=== PATIENT | female | born 1930 | race Caucasian/White ===

== ENCOUNTER 2016-12-28 13:48 | Emergency (ER) | payer MEDICARE, BC ==
[2016-12-28] MEDS ORDERED: Aspirin Low Dose CHEW TAB* 81 MG PO ONE (13:56)
[2016-12-28 14:28] LABS: Hematocrit 43 % (35-47); Hemoglobin 14.2 g/dl (12.0-16.0); Mean Corpuscular HGB Conc 33 g/dl (31-36); Mean Corpuscular Hemoglobin 27 pg (27-31); Mean Corpuscular Volume 81 fL (80-97); Mean Platelet Volume 8 um3 (7.4-10.4); Red Cell Distribution Width 16 % (10.5-15); White Blood Count 6.1 10^3/ul (3.5-10.8)
--- NOTE | 2016-12-28 14:35 | RAD ---
Indication: Aortic dissection. Single frontal view of the chest performed at 1410 hours was reviewed. Comparison is made with previous exam dated January 17, 2012. Cardiomegaly is noted. Pacemaker leads are in place. No alveolar consolidation is noted. IMPRESSION: NO ACTIVE CARDIOPULMONARY DISEASE IS NOTED.
[2016-12-28 14:42] LABS: Albumin 4.3 g/dL (3.2-5.2); BUN/Creatinine Ratio 25.6 (8-20); Calcium 9.6 mg/dL (8.6-10.3); EGFR African American 50.6 (>60); EGFR Non-African American 39.4 (>60); Globulin 2.9 g/dL (2-4); Potassium 4.3 mmol/L (3.5-5.0); Total Bilirubin 0.5 mg/dL (0.2-1.0); Total Protein 7.2 g/dL (6.4-8.9)
[2016-12-28 14:44] LABS: Troponin I 0.01 ng/mL (<0.04)
--- NOTE | 2016-12-28 16:35 | ED ---
Pipo Pitt Aidan, scribed for Donny Jain MD on 12/28/16 at 1413 . HPI Cardiac - HPI Summary HPI Summary: 86 y/o female presents to the ED via recommendation from her doctor with a subacute/chronicmthoracic aortic dissection. Imaging has revealed that her heart is enlarged. She denies any dizziness/lightheadedness or CP. On arrival, she had some SOB. Pt is on warfarin. Hx of mitral valve repair by Dr. Silvestre at [facility] in 2011. - History of Current Complaint Chief Complaint: EDChestPainROMI Stated Complaint: CHEST PAIN Time Seen by Provider: 12/28/16 13:52 Hx Obtained From: Patient Onset/Duration: Started Hours Ago Timing: Constant Initial Severity: Moderate Current Severity: Mild Pain Intensity: 0 Pain Scale Used: 0-10 Numeric Chest Pain Radiates: No Chest Pain Radiates To:: Other - There is no CP Character: Other: - no CP, see HPI Aggravating Factor(s): Other: - unknown Alleviating Factor(s): Other: - unknown Associated Signs and Symptoms: Positive: Other: - enlarged heart, small tear in heart - Allergy/Home Medications Allergies/Adverse Reactions: Allergies Allergy/AdvReac Type Severity Reaction Status Date / Time Sulfa Antibiotics Allergy See Comment Verified 12/28/16 12:17 PMH/Surg Hx/FS Hx/Imm Hx Endocrine/Hematology History: Denies: Hx Diabetes Cardiovascular History: Denies: Hx Hypertension History: Denies: Hx Renal Disease Musculoskeletal History: Denies: Hx Rheumatoid Arthritis, Hx Osteoporosis - Surgical History Surgery Procedure, Year, and Place: hysterectomy. left aortic valve repair. pacemaker/defibrilator. [address] Esteves Infectious Disease History: No Infectious Disease History: Denies: Traveled Outside the [place] in Last 30 Days - Family History Known Family History: Positive: Hypertension - Social History Occupation: Retired Lives: Alone Alcohol Use: None Hx Substance Use: No Substance Use Type: Reports: None Hx Tobacco Use: No Smoking Status (MU): Never Smoked Tobacco Do You Chew or Dip Tobacco: No Have You Chewed or Dipped Tobacco in the LAST YEAR: No Have You Smoked in the Last Year: No Review of Systems Constitutional: Negative Eyes: Negative ENT: Negative Positive: Other - enlarged heart, small tear in heart. Negative: Palpitations, Chest Pain Respiratory: Negative Gastrointestinal: Negative Genitourinary: Negative Musculoskeletal: Negative Neurological: Negative Psychological: Normal All Other Systems Reviewed And Are Negative: Yes Physical Exam - Summary Physical Exam Summary: Constitutional: Well-developed, Well-nourished, Alert. (-) Distressed Skin: Warm, Dry HENT: Normocephalic; Atraumatic Eyes: Conjunctiva normal Neck: Musculoskeletal ROM normal neck. (-) JVD, (-) Stridor, (-) Tracheal deviation Cardio: Rhythm regular, rate normal, Heart sounds normal; Intact distal pulses 2 + and symmetric, (-) Murmur, Pulmonary/Chest wall: Effort normal. (-) Respiratory distress, (-) Wheezes, (-) Rales Abd: Soft, (-) Tenderness, (-) Distension, (-) Guarding, (-) Rebound Musculoskeletal: (-) Edema Lymph: (-) Cervical adenopathy Neuro: Alert, Oriented x3 Psych: Mood and affect Normal Triage Information Reviewed: Yes Vital Signs On Initial Exam: Initial Vitals Temp Pulse Resp BP Pulse Ox 96.5 F 75 20 145/65 98 12/28/16 13:51 12/28/16 13:51 12/28/16 13:51 12/28/16 13:51 12/28/16 13:51 Vital Signs Reviewed: Yes Diagnostics - Vital Signs Vital Signs Temp Pulse Resp BP Pulse Ox 12/28/16 13:54 96.5 F 74 20 145/65 98 12/28/16 13:51 96.5 F 75 20 145/65 98 - Laboratory Lab Results: Lab Results 12/28/16 12/28/16 12/28/16 Range/Units 14:19 14:19 14:19 WBC 6.1 (3.5-10.8) 10^3/ul RBC 5.30 (4.0-5.4) 10^6/ul Hgb 14.2 (12.0-16.0) g/dl Hct 43 (35-47) % MCV 81 (80-97) fL MCH 27 (27-31) pg MCHC 33 (31-36) g/dl RDW 16 H (10.5-15) % Plt Count 168 (150-450) 10^3/ul MPV 8 (7.4-10.4) um3 Neut % (Auto) 68.0 (38-83) % Lymph % (Auto) 21.9 L (25-47) % [place] % (Auto) 7.7 (1-9) % Eos % (Auto) 1.4 (0-6) % Baso % (Auto) 1.0 (0-2) % Absolute Neuts (auto) 4.1 (1.5-7.7) 10^3/ul Absolute Lymphs (auto) 1.3 (1.0-4.8) 10^3/ul Absolute Monos (auto) 0.5 (0-0.8) 10^3/ul Absolute Eos (auto) 0.1 (0-0.6) 10^3/ul Absolute Basos (auto) 0.1 (0-0.2) 10^3/ul Absolute Nucleated RBC 0 10^3/ul Nucleated RBC % 0 INR (Anticoag Therapy) (0.89-1.11) APTT (26.0-36.3) seconds Sodium 135 (133-145) mmol/L Potassium 4.3 (3.5-5.0) mmol/L Chloride 101 (101-111) mmol/L Carbon Dioxide 25 (22-32) mmol/L Anion Gap 9 (2-11) mmol/L BUN 33 H (6-24) mg/dL Creatinine 1.29 H (0.51-0.95) mg/dL Est GFR ( Amer) 50.6 (>60) Est GFR (Non-Af Amer) 39.4 (>60) BUN/Creatinine Ratio 25.6 H (8-20) Glucose 177 H (70-100) mg/dL Lactic Acid 1.9 (0.5-2.0) mmol/L Calcium 9.6 (8.6-10.3) mg/dL Total Bilirubin 0.50 (0.2-1.0) mg/dL AST 20 (13-39) U/L ALT 14 (7-52) U/L Alkaline Phosphatase 64 (34-104) U/L Troponin I 0.01 (<0.04) ng/mL Total Protein 7.2 (6.4-8.9) g/dL Albumin 4.3 (3.2-5.2) g/dL Globulin 2.9 (2-4) g/dL Albumin/Globulin Ratio 1.5 (1-3) /03/08 Range/Units 14:19 WBC (3.5-10.8) 10^3/ul RBC (4.0-5.4) 10^6/ul Hgb (12.0-16.0) g/dl Hct (35-47) % MCV (80-97) fL MCH (27-31) pg MCHC (31-36) g/dl RDW (10.5-15) % Plt Count (150-450) 10^3/ul MPV (7.4-10.4) um3 Neut % (Auto) (38-83) % Lymph % (Auto) (25-47) % [place] % (Auto) (1-9) % Eos % (Auto) (0-6) % Baso % (Auto) (0-2) % Absolute Neuts (auto) (1.5-7.7) 10^3/ul Absolute Lymphs (auto) (1.0-4.8) 10^3/ul Absolute Monos (auto) (0-0.8) 10^3/ul Absolute Eos (auto) (0-0.6) 10^3/ul Absolute Basos (auto) (0-0.2) 10^3/ul Absolute Nucleated RBC 10^3/ul Nucleated RBC % INR (Anticoag Therapy) 1.98 H (0.89-1.11) APTT 42.8 H (26.0-36.3) seconds Sodium (133-145) mmol/L Potassium (3.5-5.0) mmol/L Chloride (101-111) mmol/L Carbon Dioxide (22-32) mmol/L Anion Gap (2-11) mmol/L BUN (6-24) mg/dL Creatinine (0.51-0.95) mg/dL Est GFR ( Amer) (>60) Est GFR (Non-Af Amer) (>60) BUN/Creatinine Ratio (8-20) Glucose (70-100) mg/dL Lactic Acid (0.5-2.0) mmol/L Calcium (8.6-10.3) mg/dL Total Bilirubin (0.2-1.0) mg/dL AST (13-39) U/L ALT (7-52) U/L Alkaline Phosphatase (34-104) U/L Troponin I (<0.04) ng/mL Total Protein (6.4-8.9) g/dL Albumin (3.2-5.2) g/dL Globulin (2-4) g/dL Albumin/Globulin Ratio (1-3) Result Diagrams: 12/28/16 14:19 12/28/16 14:19 Lab Statement: Any lab studies that have been ordered have been reviewed, and results considered in the medical decision making process. - Radiology CHEST X-RAY Xray Interpretation: No Acute Changes - IMPRESSION: No active cardiopulmonary disease is noted Radiology Interpretation Completed By: Radiologist - EKG EKG 1409 Cardiac Rate: NL - 72 BPM EKG Interpretation: PACED RHYTHM, NO STEMI Re-Evaluation - Re-Evaluation First Eval Re-Evaluation Time: 15:30 Change: Unchanged Second Eval Re-Evaluation Time: 16:00 Change: Unchanged Disposition - Course Course Of Treatment: 86 y/o female presents with an enlarged heart. [facility] was consulted for transfer, however, there was no bed capacity so transfer was denied. The patient then requested transfer to [facility]. Dr Silvestre at [facility] initially thought the patient had her mitral valve repair done at [facility], however, it was found that she actually had the procedure done at [facility]. Dr. De La Garza was not comfortable with admitting the patient to due to the patient being anticoagulated in the presence of aortic dissection. Dr. De La Garza wishes to admit the patient somewhere where there is vascular and cardiothoracic backup. So as to not board the patient until 7AM tomorrow when Dr. Silvestre can accept her, she will be transfered to [facility] in the ED. Accepted by Dr. Machuca. No treatment is currently advised for INR or blood pressure. - Diagnoses Provider Diagnoses: chronic aortic dissection - Physician Notifications Time Discussed With Above Provider: 14:11 - Dr. Jain discussed the patient's care with [facility] to determine if they will take the patient for transfer. [facility] currently has no bed capacity. They are declining transfer. The patient then requested transfer to [facility]. Dr Silvestre at [facility] felt very strongly about the patient being transfered to [facility], as he thought that she had her aortic valve repair done there. It was later found that she actually had the valve repair done at [facility]. The patient will be transfered to [facility] and signed out to Dr. Machuca. - Critical Care Time Critical Care Time: 75-104 min - 90 minutes Discharge - Discharge Plan Condition: Stable Disposition: TRANS HIGHER LVL OF CARE FAC Discharge Disposition Comment: The patient will be transfered to [facility] and signed out to Dr. Machuca Referrals: Preeti Cooper MD [Primary Care Provider] - The documentation as recorded by the Pipo figueredo Aidan accurately reflects the service I personally performed and the decisions made by , Donny Jain MD.
[2016-12-28 17:35] VITALS: BP 113/45
== END 2016-12-28 18:00 | disposition short-term general hospital (02) ==
LOC: ED 13:48
DX: I71.00 Dissection of unspecified site of aorta (principal); I51.7 Cardiomegaly; R06.02 Shortness of breath; Z79.01 Long term (current) use of anticoagulants
CPT/HCPCS: 36415; 71010; 80053; 83605; 84484; 85025; 85610; 85730; 93005; 99283

== ENCOUNTER 2019-03-04 07:20 | Emergency (ER) | payer MEDICARE, BC ==
[2019-03-04 08:26] LABS: ABS Basophils 0.1 10^3/ul (0-0.2); ABS Eosinophils 0.1 10^3/ul (0-0.6); ABS Lymphocytes 0.7 10^3/ul (1.0-4.8); ABS Monocytes 0.7 10^3/ul (0-0.8); ABS Neutrophils 3.9 10^3/ul (1.5-7.7); Eosinophil % 1.7 %; Hematocrit 42 % (35-47); Hemoglobin 13.7 g/dL (12.0-16.0); Lymphocyte % 12.8 %; Mean Corpuscular HGB Conc 33 g/dL (31-36); Mean Corpuscular Hemoglobin 27 pg (27-31); Mean Corpuscular Volume 82 fL (80-97); Mean Platelet Volume 8.2 fL (7.4-10.4); Platelet Count 117 10^3/uL (150-450); Red Blood Count 5.09 10^6 /uL (3.70-4.87); Red Cell Distribution Width 18 % (10-15); White Blood Count 5.5 10^3/uL (3.5-10.8)
--- NOTE | 2019-03-04 08:40 | ED ---
Shortness of Breath - HPI Summary HPI Summary: The patient is an 88 y/o F presenting [place] [facility] accompanied by daughter with a chief complaint of sudden onset SOB this morning at 0400. She reports that she doesnt sleep well, and she woke up around 0400 with some difficulty breathing. She got up and starting walking around but felt weak so she lied back down. She called her daughter, who suggested coming to the ED today. Pt has markedly improved and is nearly at baseline. She denies cough, nausea, vomiting, abd pain, dysuria, increased urinary frequency, or edema. She states she occasionally gets swelling in the eyes, but there is none present now. Pt denies weight gain - swelling when gets "fluid backup." She is not currently in pain, but she still feels mildly SOB. Notes that she has hx of CHF, aortic dissection and mitral valve repair, but she had an appointment with her stretcher drier operator a month ago and results were negative for change per CT. Last echocardiogram in 2018. She hasnt taken medications yet this morning. Patient s medications reviewed this visit. - History of Current Complaint Chief Complaint: EDShortnessOfBreath Time Seen by Provider: 03/04/19 07:40 Hx Obtained From: Patient, Family/Social Work Msw - daughter Onset/Duration: Sudden Onset - at 0400 this morning, Lasting Hours, Still Present Current Severity: Moderate Dyspnea At: Rest Aggravating Factors: Other - ambulation Alleviating Factors: Nothing Associated Signs & Symptoms: Dizzy - Allergy/Home Medications Allergies/Adverse Reactions: Allergies Allergy/AdvReac Type Severity Reaction Status Date / Time Sulfa (Sulfonamide Allergy See Comment Verified 03/04/19 08:22 Antibiotics) Home Medications: Home Medications Carvedilol [Coreg] 25 mg PO BID 03/04/19 [History Confirmed 03/04/19] Cholecalciferol (Vitamin D3) [Vitamin D3] 1,000 unit PO DAILY 03/04/19 [History Confirmed 03/04/19] Ferrous Sulfate 325 mg PO DAILY 03/04/19 [History Confirmed 03/04/19] Losartan Potassium [Cozaar] 50 mg PO BID 03/04/19 [History Confirmed 03/04/19] Multivitamin/Iron/Folic Acid [Centrum Adults Tablet] 1 tab PO DAILY 03/04/19 [ History Confirmed 03/04/19] Tramadol HCl 50 mg PO Q6HR PRN 03/04/19 [History Confirmed 03/04/19] PMH/Surg Hx/FS Hx/Imm Hx Previously Healthy: No Endocrine/Hematology History: Denies: Hx Diabetes, Hx Systemic Lupus Erythematosus Cardiovascular History: Reports: Hx Aneurysm - aortic , Hx Atrial Fibrillation, Hx Congestive Heart Failure, Hx Hypertension, Hx Pacemaker/ICD, Other Cardiovascular Problems/Disorders - mitral valve repair Denies: Hx Auto Implanted Cardiovert Defib History: Denies: Hx Renal Disease Musculoskeletal History: Denies: Hx Rheumatoid Arthritis, Hx Osteoporosis - Surgical History Surgery Procedure, Year, and Place: hysterectomy. left aortic valve repair. pacemaker/defibrilator. [address] Esteves Infectious Disease History: No Infectious Disease History: Denies: Traveled Outside the [place] in Last 30 Days - Family History Known Family History: Positive: Hypertension - Social History Occupation: Retired Lives: Alone Alcohol Use: None Hx Substance Use: No Substance Use Type: Reports: None Hx Tobacco Use: No Smoking Status (MU): Never Smoked Tobacco Do You Chew or Dip Tobacco: No Have You Chewed or Dipped Tobacco in the LAST YEAR: No Have You Smoked in the Last Year: No Review of Systems Constitutional: Negative Eyes: Negative ENT: Negative Cardiovascular: Negative Positive: Shortness Of Breath. Negative: Cough Negative: Abdominal Pain, Vomiting, Nausea Negative: dysuria, frequency Negative: Edema Neurological: Other - dizziness Positive: Weakness All Other Systems Reviewed And Are Negative: Yes Physical Exam - Summary Physical Exam Summary: Vital Signs Reviewed: Yes A+Ox3, no distress, speaking full easy sentences, VSS, daughter at bedside Eyes: Conjunctiva Clear, MANUEL. EOM intact and full ENT: Hearing grossly normal TM x 2 clear, mmoist, uvula midline, no exudate, no erythema Neck: Positive: Supple Respiratory: Positive: No respiratory distress, No accessory muscle use + CTA throughout no w/r Cardiovascular: RRR nl s1, s2 no m/r CBT <2 sec, no JVP, no edema abd soft + BS nt/nd no guarding, no distension Musculoskeletal Exam: GONZALEZ x 4 without difficulty Strength Intact, ROM Intact Neurological: Positive: Alert, + sensation throughout Psychological: Positive: Normal Response To crisis manager Skin: Positive: no rash, no ecchymosis Triage Information Reviewed: Yes Vital Signs On Initial Exam: Initial Vitals Temp Pulse Resp BP Pulse Ox 97.0 F 61 18 182/79 94 03/04/19 07:21 03/04/19 07:21 03/04/19 07:21 03/04/19 07:21 03/04/19 07:21 Vital Signs Reviewed: Yes Diagnostics - Vital Signs Vital Signs Temp Pulse Resp BP Pulse Ox 03/04/19 07:21 97.0 F 61 18 182/79 94 - Laboratory Lab Results: Lab Results 03/04/19 Range/Units 08:00 WBC 5.5 (3.5-10.8) 10^3/uL RBC 5.09 H (3.70-4.87) 10^6 /uL Hgb 13.7 (12.0-16.0) g/dL Hct 42 (35-47) % MCV 82 (80-97) fL MCH 27 (27-31) pg MCHC 33 (31-36) g/dL RDW 18 H (10-15) % Plt Count 117 L (150-450) 10^3/uL MPV 8.2 (7.4-10.4) fL Neut % (Auto) 71.3 % Lymph % (Auto) 12.8 % [place] % (Auto) 12.8 % Eos % (Auto) 1.7 % Baso % (Auto) 1.4 % Absolute Neuts (auto) 3.9 (1.5-7.7) 10^3/ul Absolute Lymphs (auto) 0.7 L (1.0-4.8) 10^3/ul Absolute Monos (auto) 0.7 (0-0.8) 10^3/ul Absolute Eos (auto) 0.1 (0-0.6) 10^3/ul Absolute Basos (auto) 0.1 (0-0.2) 10^3/ul Absolute Nucleated RBC 0.0 10^3/ul Nucleated RBC % 0.0 Result Diagrams: 03/04/19 08:00 03/04/19 08:00 Lab Statement: Any lab studies that have been ordered have been reviewed, and results considered in the medical decision making process. - Radiology CXR Radiology Interpretation Completed By: Radiologist Summary of Radiographic Findings: Impression: No active cardiopulmonary disease. ED physician has reviewed this radiology report. - CT Chest/Abd/Pel CTA CT Interpretation Completed By: Radiologist Summary of CT Findings: Impression: 1. Passive congestion of the liver with reflux of contrast from the RIGHT atrium to the IVC and hepatic veins. Nodular surface contour of the liver suggesting cirrhosis. Negative for conspicuous focal liver lesions. 2. Mild diverticulosis of the colon without findings of acute diverticulitis. 3. Small to moderate volume of nonloculated ascites. 4. Probable renal vascular atrophy of the LEFT kidney with suggestion of interval worsening of the ostial stenosis estimated at 90% or greater. 5. Negative for abdominal aortoiliac aneurysm or dissection. ED physician has reviewed this radiology report. - EKG 0750 Cardiac Rate: Other Rate - 60 bpm Summary of EKG Findings: AV paced at 60 bpm. No STEMI. Re-Evaluation - Re-Evaluation First Eval Re-Evaluation Time: 12:00 Change: Improved Comment: She is feeling much better, and she is hungry now. awaiting CT report Second Eval Re-Evaluation Time: 12:35 Comment: We discussed results of the CTA. We will consult her stretcher drier operator at [facility] from December 2017 - pt had [facility] at [facility] more recent Third Eval Re-Evaluation Time: 12:45 Comment: Patient and daughter are aware of consulation with cardiology for CT comparison. awaiting for call back from CT surgery Fourth Eval Re-Evaluation Time: 14:00 Change: Unchanged Comment: I discussed updates with Dr. Kramer's consultation. - will look at images and call me back - expect pt will likely be able to go home with follow- up Fifth Eval Re-Evaluation Time: 14:30 Comment: Call from Tonia - TELECOM ANALYST with CT surgery - okay to discharge pt Recommend f/ u with Dr. Waldron next week. Pt and daughter in agreement - will discharge. pt ate, feels well. spoke with Katie [phone] - RN Dr. Waldron office - aware pt sariah ace calling for appt. Pt signed medical release to have records released to office Course/Dx - Course Course Of Treatment: Pt presents to ED stating this am felt sob and weak - states has markedly improved. complex med history including aortic valve replacment, dissection - stable. Vital signs are stable. Patient was well- appearing on exam with stable vital signs with a stitch she feels well although not 100% at baseline. No focal findings on exam. Lungs are clear. Labs reviewed. Patient with borderline renal disease that is baseline. Troponin is negative BNP is slightly higher than her baseline. Patient given her morning medications that she did not take them at home. This included Coreg, aspirin, Lasix, and Cozaar. We'll check CTA to eval the dissection. We'll give patient some gentle IV fluid given her renal function well as some IV Lasix. elevated BP - history of same - Diagnoses Provider Diagnoses: SOB (shortness of breath) - Physician Notifications Discussed Care of Patient With: Jaime Mueller - radiology Time Discussed With Above Provider: 12:28 Instructed by Provider To: Other - Dr. Mueller reports the results of the patient's CTA. At 1240 I spoke with the patient's stretcher drier operator's office, Dr. Waldron at [facility]. He is out of the [place], but we reviewed the most recent CT in June 2018; it is unclear if there are new findings. I will speak with the transfer center to see if we can obtain a better read for comparison. At 1309, I spoke with Dr. Kramer, [facility], concerning the patient's CT reads, and he will review them. At 1420, CT comparison is reported to be consistent between reads per MARY Randall. Patient is clear for discharge as the finding is stable from June 2018. Discharge - Sign-Out/Discharge Documenting (check all that apply): Patient Departure - Patient will be discharged home. Patient Received Moderate/Deep Sedation with Procedure: No - Discharge Plan Condition: Stable Disposition: HOME Patient Education Materials: Shortness of Breath (ED) Referrals: Preeti Cooper MD [Primary Care Provider] - Marky Kramer MD [Medical Doctor] - 1 Week Additional Instructions: Please follow up with Dr. Waldron office to schedule an appointment next week [phone] Take your medications as prescribed Schedule a follow-up appointment with your primary care provider Avoid high salt diet foods Return to the emergency department for any new or worsening symptoms. - Billing Disposition and Condition Condition: STABLE Disposition: Home - Attestation Statements Document Initiated by Scribe: Yes Documenting Scribe: Lashawn Garrett Provider For Whom Scribe is Documenting (Include Credential): Dr. Citlalli Pepe MD Scribe Attestation: Lashawn Pitt scribed for Dr. Citlalli Pepe MD on 03/04/19 at 1609. Scribe Documentation Reviewed: Yes Provider Attestation: The documentation as recorded by the scribe, Lashawn Garrett accurately reflects the service I personally performed and the decisions made by me, Dr. Citlalli Pepe MD Status of Scribe Document: Viewed
[2019-03-04 08:41] LABS: Albumin 4.3 g/dL (3.2-5.2); Albumin/Globulin Ratio 1.7 (1-3); BUN/Creatinine Ratio 24.4 (8-20); Calcium 9.6 mg/dL (8.6-10.3); EGFR African American 48.3 (>60); EGFR Non-African American 39.9 (>60); Globulin 2.6 g/dL (2-4); Magnesium 2.3 mg/dL (1.9-2.7); Potassium 4.4 mmol/L (3.5-5.0); Total Bilirubin 1.1 mg/dL (0.2-1.0); Total Protein 6.9 g/dL (6.4-8.9); Troponin I 0.03 ng/mL (<0.04)
[2019-03-04] MEDS ORDERED: Furosemide TAB* 40 MG PO ONE (08:53)
[2019-03-04] MEDS ORDERED: Aspirin 81 mg CHEW TAB* 81 MG TAB.CHEW PO ONE (08:53)
[2019-03-04] MEDS ORDERED: Losartan TAB* 25 MG PO ONE (09:42)
[2019-03-04] MEDS ORDERED: Carvedilol TAB* 25 MG PO ONE (09:43)
[2019-03-04] MEDS ORDERED: Furosemide IV* 10 MG/ML 2 ML VIAL (20 MG) IV ONE (09:43)
[2019-03-04] MEDS ORDERED: NS 0.9% 500 ML* 500 ML IV SCH (10:00)
[2019-03-04 11:06] LABS: Urine Appearance Clear; Urine Bacteria Absent (Absent); Urine Bilirubin Negative (Negative); Urine Blood Negative (Negative); Urine Color Yellow; Urine Glucose Negative (Negative); Urine Ketones Negative (Negative); Urine Nitrite Negative (Negative); Urine Protein 2+(100 mg/dL) (Negative); Urine Red Blood Cell 1+(3-5/hpf) (Absent); Urine Specific Gravity 1.012 (1.010-1.030); Urine Squamous Epithelial Cell Present (Absent); Urine Urobilinogen Negative (Negative); Urine White Blood Cell Trace(0-5/hpf) (Absent)
[2019-03-04] MEDS ORDERED: Iodixanol* (CONTRAST) 320 MG/ML 100 ML SDV IV ONE (11:15)
[2019-03-04 15:09] VITALS: BP 138/89
== END 2019-03-04 15:08 | disposition home or self-care (01) ==
LOC: ED 07:20
DX: R06.02 Shortness of breath (principal); I48.91 Unspecified atrial fibrillation; I50.9 Heart failure, unspecified; I11.0 Hypertensive heart disease with heart failure; Z95.0 Presence of cardiac pacemaker; Z88.2 Allergy status to sulfonamides; Z79.899 Other long term (current) drug therapy
CPT/HCPCS: 36415; 71045; 71275; 74174; 80053; 81003; 81015; 83735; 83880; 84484; 85025; 87086; 93005; 96361; 96374; 99285; A9270-GY; J1940; Q9967

== ENCOUNTER 2019-06-05 09:47 | Emergency (ER) | payer MEDICARE, BC ==
--- OUTSIDE RECORDS SUMMARY | 2019-06-05 09:58 | XMS REPORT | Continuity of Care Document ---
:1930 External Reference #:[id number] Author Name Preeti Cooper M.D. (transmitted by agent of provider [place]) Address [address], [place] [address] Care Team Providers Name Role Phone Heriberto Olsen MD - Gastroenterology Care Team Information Enterprise Integration Developer Preeti Cooper MD - Internal Care Team Information Enterprise Integration Developer [phone] Medicine Problems Active Problems Provider Date Chronic dissection of thoracic Preeti Cooper M.D. Onset: 07/01/2017 aorta Replacement of mitral valve Preeti Cooper M.D. Onset: 05/10/2015 Restless legs Leon Nazario M.D.,[facility] Onset: 11/14/2007 Osteoporosis Preeti Cooper M.D. Onset: 05/10/2015 Impaired fasting glycaemia Leon Nazario M.D.,[facility] Onset: 06/09/2011 Benign essential hypertension Leon Nazario M.D.,[facility] Onset: 11/14/2007 Thoracic aortic ectasia Jabier Cuadra M.D., [facility], Onset: 01/03/2017 FASKS Paroxysmal atrial fibrillation Jabier Cuadra M.D., [facility], Onset: 2016 FASKS Mitral leaflet abnormality Jabier Cuadra M.D., [facility], Onset: 11/12/2018 [facility] Social History Type Date Description Comments Sex Unknown Tobacco Use Start: Unknown End: Former Cigarette Smoker 1 year in 20s. Unknown ETOH Use Occasionally consumes 3-4 nights a week wine one glass Recreational Drug Use Denies Drug Use Tobacco Use Start: Unknown Patient has never smoked Smoking Status Reviewed: 05/19/19 Patient has never smoked Exercise Type/Frequency Walks daily Allergies, Adverse Reactions, Alerts Active Allergies Reaction Severity Comments Date Sulfonamides headache 11/13/2007 Norvasc leg pain 11/13/2007 Lisinopril cough 11/13/2007 Torsemide N/V/D 09/26/2011 Gabapentin 01/02/2012 Medications Active Medications SIG Qnty Indications Ordering Provider Date Centrum 1 by mouth every 90tabs Preeti [place], 03/07/2018 Tablets day M.D. Ferrous Sulfate 1 by mouth every 90tabs Preeti Cotton, 03/07/2018 orher day M.D. 325(65Fe) mg Tablets Tramadol HCL take 1 tablet @ 120tabs Preeti Cotton, 11/12/2013 50mg hs M.D. Tablets Vitamin D3 High 1 po qd [facility], 09/01/2013 Potency M.D. 1000Unit Capsules Aspirin 81 Low Dose 1 by mouth every Unknown day 81mg Chewtabs Furosemide take 2 tablets 90tabs Preeti Cotton, 40mg by mouth once M.D. Tablets daily in the morning Losartan Potassium 1 by mouth twice 180tabs Preeti Cotton, a day (dr. Márquez 50mg Tablets rick) Carvedilol 1 tab by mouth 180tabs Preeti Cotton, 25mg two times daily M.D. Tablets Medications Administered in Office Medication SIG Qnty Indications Ordering Provider Date Dexamethasone Sodium Henry Summers MD 10/17/2016 Phosphate, 1 MG Injection Inj, Regadenoson, 0.1 MG Ameya Lim M.D. 01/09/2014 Injection Inj, Regadenoson, 0.1 MG DORINDA Augustine 01/09/2014 Injection Technetium TC 99M Ameya Lim M.D. 01/09/2014 Tetrofosmin, Per Unit Dose Up To 40 Millicuries Injection Technetium TC 99M DORINDA Augustine 01/09/2014 Tetrofosmin, Per Unit Dose Up To 40 Millicuries Injection Inj, Regadenoson, 0.1 MG Jabier Cuadra M.D., 02/03/2013 Injection FACC, FASKS Technetium TC 99M Jabier Cuadra M.D., 02/03/2013 Tetrofosmin, Per Unit Dose Up [facility] To 40 Millicuries Injection Immunizations CPT Code Status Date Vaccine Reaction Lot # [id number] Given 05/19/2019 Influenza Virus Vaccine, [id number] Quadrivalent ([id number]), Derived From Cell 60692 Given 05/08/2018 Influenza Virus Vaccine, [id number] Quadrivalent, Split, Preservative Free 98923 Given 05/26/2017 Influenza Virus Vaccine, Quadrivalent, Split, Preservative Free 80604 Given 06/20/2016 Influ Virus Vaccine, no immediate reaction [id number] Quadrivalent, Split Virus, noted ... [place] [address] Given 05/10/2015 Influenza Virus Vaccine, [id number] Quadrivalent, Split, Preservative Free 04653 Given 09/28/2014 Pneumococcal Conjugate [id number] Vaccine 13 Valent For Intramuscular Use 80478 Given 05/06/2014 Influenza Virus Vaccine, [id number] Quadrivalent, Split, Preservative Free 57396 Given 05/01/2013 Flu Vaccine Split Virus [id number] Preservative Free For Indiv 3Yr Older [id number] Given 04/17/2012 Fluzone Vaccine [id number] 80774 Given 09/26/2011 Pneumonia Vaccine [id number] 53776 Given 09/14/2011 Pneumonia Vaccine [id number] Given 05/01/2011 Fluzone Vaccine 38440 Given 05/01/2010 Influenza Virus 3Yrs & Over 88255 Given 04/23/2008 Influenza Virus 3Yrs & [id number] Over 34035 Given 06/06/2007 Flu Vac (History By [id number] Patient> Vital Signs Date Vital Result Comment 05/19/2019 10:01am Height 62 inches 5'2" Weight 167.00 lb Heart Rate 80 /min BP Systolic 129 mmHg BP Diastolic 72 mmHg Body Temperature 97.1 F O2 % BldC Oximetry 96 % BMI (Body Mass Index) 30.5 kg/m2 04/18/2019 10:16am Height 62 inches 5'2" Weight 158.00 lb Heart Rate 74 /min BP Systolic 144 mmHg BP Diastolic 68 mmHg O2 % BldC Oximetry 96 % BMI (Body Mass Index) 28.9 kg/m2 Results Test Date Facility Test Result H/L Range Note BMP W/Egfr 2019 [facility] Sodium 141 mmol/L Normal 135- [address] [place] [address] [phone] Potassium 4.8 mmol/L Normal 3.5-5.0 Chloride 100 mmol/L Low 101-111 Co2 Carbon Dioxide 31 mmol/L Normal 22-32 Anion Gap 10 mmol/L Normal 2-11 Glucose 116 mg/dL High 70-100 Blood Urea Nitrogen 36 mg/dL High 6-24 Creatinine 1.23 mg/dL High 0.51-0.95 BUN/Creatinine Ratio 29.3 High 8-20 Calcium 9.6 mg/dL Normal 8.6-10.3 Egfr Non- 41.3 >60 Egfr 50.0 >60 1 CBC W/Auto 2019 [facility] White Blood 5.3 10^3/uL Normal 3.5-10.[address] [place] [address] [phone] Red Blood Count 5.22 10^6/uL High 3.70-4.87 Hemoglobin 13.7 g/dL Normal 12.0-16.0 Hematocrit 44 % Normal 35-47 Mean Corpuscular Volume 85 fL Normal 80-97 Mean Corpuscular Hemoglobin 26 pg Low 27-31 Mean Corpuscular HGB Conc 31 g/dL Normal 31-36 Red Cell Distribution Width 21 % High 10-15 Platelet Count 122 10^3/uL Low 150-450 Mean Platelet Volume 9.9 fL Normal 7.4-10.4 Abs Neutrophils 4.1 10^3/uL Normal 1.5-7.7 Abs Lymphocytes 0.5 10^3/uL Low 1.0-4.8 Abs Monocytes 0.6 10^3/uL Normal 0-0.8 Abs Eosinophils 0.1 10^3/uL Normal 0-0.6 Abs Basophils 0.0 10^3/uL Normal 0-0.2 Abs Nucleated RBC 0.0 10^3/uL Granulocyte % 76.3 % Lymphocyte % 9.5 % Monocyte % 12.1 % Eosinophil % 1.3 % Basophil % 0.8 % Nucleated Red Blood Cells % 0.2 CBC Auto 03/04/2019 [facility] White Blood 5.5 10^3/uL Normal 3.5-10.[address] [place] [address] [phone] Red Blood Count 5.09 10^6/uL High 3.70-4.87 Hemoglobin 13.7 g/dL Normal 12.0-16.0 Hematocrit 42 % Normal 35-47 Mean Corpuscular Volume 82 fL Normal 80-97 Mean Corpuscular Hemoglobin 27 pg Normal 27-31 Mean Corpuscular HGB Conc 33 g/dL Normal 31-36 Red Cell Distribution Width 18 % High 10-15 Platelet Count 117 10^3/uL Low 150-450 Mean Platelet Volume 8.2 fL Normal 7.4-10.4 Abs Neutrophils 3.9 10^3/uL Normal 1.5-7.7 Abs Lymphocytes 0.7 10^3/uL Low 1.0-4.8 Abs Monocytes 0.7 10^3/uL Normal 0-0.8 Abs Eosinophils 0.1 10^3/uL Normal 0-0.6 Abs Basophils 0.1 10^3/uL Normal 0-0.2 Abs Nucleated RBC 0.0 10^3/uL Granulocyte % 71.3 % Lymphocyte % 12.8 % Monocyte % 12.8 % Eosinophil % 1.7 % Basophil % 1.4 % Nucleated Red Blood Cells % 0.0 Laboratory test 03/04/2019 [facility] B-Type 716 pg/mL High <= [address] [place] [address] Peptide BNP [phone] Troponin-I (TnI) 0.03 ng/mL <0.04 2 Comp Metabolic 03/04/2019 [facility] Sodium 140 mmol/L Normal 135-[address] [place] [address] [phone] Potassium 4.4 mmol/L Normal 3.5-5.0 Chloride 102 mmol/L Normal 101-111 Co2 Carbon Dioxide 30 mmol/L Normal 22-32 Anion Gap 8 mmol/L Normal 2-11 Glucose 104 mg/dL High 70-100 Blood Urea Nitrogen 31 mg/dL High 6-24 Creatinine 1.27 mg/dL High 0.51-0.95 BUN/Creatinine Ratio 24.4 High 8-20 Calcium 9.6 mg/dL Normal 8.6-10.3 Total Protein 6.9 g/dL Normal 6.4-8.9 Albumin 4.3 g/dL Normal 3.2-5.2 Globulin 2.6 g/dL Normal 2-4 Albumin/Globulin Ratio 1.7 Normal 1-3 Total Bilirubin 1.10 mg/dL High 0.2-1.0 Alkaline Phosphatase 87 U/L Normal 34-104 Alt 16 U/L Normal 7-52 Ast 27 U/L Normal 13-39 Egfr Non- 39.9 >60 Egfr 48.3 >60 3 Laboratory test 03/04/2019 [facility] Magnesium 2.3 mg/dL Normal 1.9-2.[address] [place] [address] [phone] Urinalysis 03/04/2019 [facility] Urine Color Yellow Profile [address] [place] [address] [phone] Urine Appearance Clear Urine Specific Coleman 1.012 Normal 1.010-1.030 Urine pH 7.0 Normal 5-9 Urine Urobilinogen Negative Negative Urine Ketones Negative Negative Urine Protein 2+(100 mg/dL) Abnormal Negative Urine Leukocytes Negative Negative Urine Blood Negative Negative Urine Nitrite Negative Negative Urine Bilirubin Negative Negative Urine Glucose Negative Negative Urine White Blood Cell Trace(0-5/hpf) Absent Urine Red Blood Cell 1+(3-5/hpf) Abnormal Absent Urine Bacteria Absent Absent Urine Squamous Epithelial Cell Present Abnormal Absent Urine Culture And 03/04/2019 [facility] Urine SEE RESULT [address] [place] [address] [phone] Basic Metabolic 01/27/2019 [facility] Sodium 141 mmol/L Normal 135-[address] [place] [address] [phone] Potassium 4.5 mmol/L Normal 3.5-5.0 Chloride 103 mmol/L Normal 101-111 Co2 Carbon Dioxide 27 mmol/L Normal 22-32 Anion Gap 11 mmol/L Normal 2-11 Glucose 86 mg/dL Normal 70-100 Blood Urea Nitrogen 33 mg/dL High 6-24 Creatinine 1.30 mg/dL High 0.51-0.95 BUN/Creatinine Ratio 25.4 High 8-20 Calcium 9.7 mg/dL Normal 8.6-10.3 Egfr Non- 38.8 >60 Egfr 47.0 >60 5 Iron & Iron Binding 01/27/2019 [facility] Iron 36 g/dL Low 50-[address] [place] [address] [phone] Unsaturated Iron Binding < 366 g/dL Total Iron Binding Capacity 381 g/dL Normal 250-450 Transferrin 272 mg/dL Normal 203-362 % Iron Saturation 9 % Low 15-55 1 Because ethnic data is not always readily available, this report includes an eGFR for both -Americans and non- Americans. The National Kidney Disease Education Program (NKDEP) does not endorse the use of the MDRD equation for patients that are not between the ages of 18 and 70, are , have extremes of body size, muscle mass, or nutritional status, or are non- or non-. According to the National Kidney Foundation, irrespective of diagnosis, the stage of the disease is based on the level of kidney function: Stage Description GFR(mL/min/1.73 m(2)) 1 Kidney damage with normal or decreased GFR 90 2 Kidney damage with mild decrease in GFR 60-89 3 Moderate decrease in GFR 30-59 4 Severe decrease in GFR 15-29 5 Kidney failure <15 (or dialysis) 2 Troponin-I testing on Plasma Separator Tubes (PST) has a known false positive rate of 0.20-0.40%. All positive troponins reflex immediately to secondary confirmatory testing. Using the [employer] DxI 800 Access Immunoassay systems, the 99th percentile upper reference limit was demonstrated to be < 0.03 ng/mL. 3 Because ethnic data is not always readily available, this report includes an eGFR for both -Americans and non- Americans. The National Kidney Disease Education Program (NKDEP) does not endorse the use of the MDRD equation for patients that are not between the ages of 18 and 70, are , have extremes of body size, muscle mass, or nutritional status, or are non- or non-. According to the National Kidney Foundation, irrespective of diagnosis, the stage of the disease is based on the level of kidney function: Stage Description GFR(mL/min/1.73 m(2)) 1 Kidney damage with normal or decreased GFR 90 2 Kidney damage with mild decrease in GFR 60-89 3 Moderate decrease in GFR 30-59 4 Severe decrease in GFR 15-29 5 Kidney failure <15 (or dialysis) 4 SEE RESULT BELOW Name: [place] ABDI : [address]: Citlalli Pepe MD Acct: [id number] Unit: [id number] AGE: 88 Location: ED Re03/04/19 SEX: F Status: DEP ER SPEC: [id number] [place]: 03/04/[address] [facility] [address]: Citlalli Pepe MD REQ: [id number] RECD: 03/04/19 STATUS: CARLIN URIBE DR: Preeti Cooper MD _ SOURCE: URINE SPDESC: ORDERED: Urine Culture/S Procedure Result Reported Site Urine Culture Final 03/05/19- 1202 ML No growth of clinically significant organisms * ML - Main Lab . END OF REPORT DEPARTMENT OF PATHOLOGY, [address] [place] [address] Kenton Boyer M.D. Director [facility] # [id number] 5 Because ethnic data is not always readily available, this report includes an eGFR for both -Americans and non- Americans. The National Kidney Disease Education Program (NKDEP) does not endorse the use of the MDRD equation for patients that are not between the ages of 18 and 70, are , have extremes of body size, muscle mass, or nutritional status, or are non- or non-. According to the National Kidney Foundation, irrespective of diagnosis, the stage of the disease is based on the level of kidney function: Stage Description GFR(mL/min/1.73 m(2)) 1 Kidney damage with normal or decreased GFR 90 2 Kidney damage with mild decrease in GFR 60-89 3 Moderate decrease in GFR 30-59 4 Severe decrease in GFR 15-29 5 Kidney failure <15 (or dialysis) Procedures Date Code Description Status 09/10/2012 989051487 Bone Mineral Density Test Completed 01/31/2012 [id number] Diabetic Foot Exam Completed 06/13/2010 [id number] Mammogram Completed 06/07/2009 [id number] Mammogram Completed 06/05/2008 [id number] Mammogram Completed 12/10/2007 [id number] Colonoscopy Completed Medical Devices Description No Information Available Encounters Type Date Location Provider Dx Diagnosis Office Visit 04/02/2019 [facility] Lenytimi Vang, R04.2 Hemoptysis 9:50a Bobbi - Romy Márquez R06.00 Dyspnea, unspecified Office Visit 01/03/2019 [facility] [address] Internal Preeti I42.9 Cardiomyopathy, 1:00p Medicine - Yulisa Cooper unspecified Romy N18.3 Chronic kidney disease, stage 3 (moderate) G25.81 Restless legs syndrome D50.9 Iron deficiency anemia, unspecified Assessments Date Code Description Provider 05/19/2019 I10 Essential (primary) hypertension Preeti Cooper M.D. 05/19/2019 R06.02 Shortness of breath Preeti Cooper M.D. 04/18/2019 I50.810 Right heart failure, awildaified Preeti Cooper M.D. 04/18/2019 D69.6 Thrombocytopenia, [place] Cooper M.D. 04/02/2019 R04.2 Hemoptysis Leny Vang M.D. 04/02/2019 R06.00 Dyspnea, [place] Vang M.D. 01/03/2019 I42.9 Cardiomyopathy, unspecified Preeti Cooper M.D. 01/03/2019 N18.3 Chronic kidney disease, stage 3 (moderate) Preeti Cooper M.D. 01/03/2019 G25.81 Restless legs syndrome Preeti Cooper M.D. 01/03/2019 D50.9 Iron deficiency anemia, awildaified Preeti Cooper M.D. Plan of Treatment Future Appointment(s):09/09/2019 8:40 am - Preeti Cooper M.D. at [facility] [address] Internal Medicine - [facility]05/19/2019 - Preeti Cooper M.D.I10 Essential ( primary) hypertensionComments:Your blood pressure is fine. Continue the same medicationFollow up:Aug 2019R06.02 Shortness of breathComments:If your oxygen level drops below 89% you will qualify for oxygen at homeThe major agencies for home care are [facility] and [facility]Look on line at the office for the Aging [facility] HomePATH program - through HospiceContact your insurance - do they cover anything? Please review the MOLST form Functional Status Description No Information Available Mental Status Description No Information Available Referrals Description No Information Available
--- OUTSIDE RECORDS SUMMARY | 2019-06-05 09:58 | XMS REPORT | Continuity of Care Document ---
:1930 External Reference #:[id number] Author Name Preeti Cooper M.D. (transmitted by agent of provider [place]) Address [address], [place] [address] Care Team Providers Name Role Phone Heriberto Olsen MD - Gastroenterology Care Team Information Boots And Shoes Supervisor Preeti Cooper MD - Internal Care Team Information Boots And Shoes Supervisor Medicine Problems Active Problems Provider Date Chronic dissection of thoracic Preeti Cooper M.D. Onset: 07/01/2017 aorta Replacement of mitral valve Preeti Cooper M.D. Onset: 05/10/2015 Restless legs Leon Nazario M.D.,[facility] Onset: 11/14/2007 Osteoporosis Preeti Cooper M.D. Onset: 05/10/2015 Impaired fasting glycaemia Leon Nazario M.D.,[facility] Onset: 06/09/2011 Benign essential hypertension Leon Nazario M.D.,[facility] Onset: 11/14/2007 Thoracic aortic ectasia Jabier Cuadra M.D., [facility], Onset: 01/03/2017 FASCT Paroxysmal atrial fibrillation Jabier Cuadra M.D., [facility], Onset: 2016 FASCT Mitral leaflet abnormality Jabier Cuadra M.D., [facility], Onset: 11/12/2018 [facility] Social History Type Date Description Comments Sex Unknown Tobacco Use Start: Unknown End: Former Cigarette Smoker 1 year in 20s. Unknown ETOH Use Occasionally consumes 3-4 nights a week wine one glass Recreational Drug Use Denies Drug Use Tobacco Use Start: Unknown Patient has never smoked Smoking Status Reviewed: 04/18/19 Patient has never smoked Exercise Type/Frequency Walks daily Allergies, Adverse Reactions, Alerts Active Allergies Reaction Severity Comments Date Sulfonamides headache 11/13/2007 Norvasc leg pain 11/13/2007 Lisinopril cough 11/13/2007 Torsemide N/V/D 09/26/2011 Gabapentin 01/02/2012 Medications Active Medications SIG Qnty Indications Ordering Provider Date Centrum 1 by mouth every 90tabs Preeti Cotton, 03/07/2018 Tablets day M.D. Ferrous Sulfate 1 by mouth every 90tabs Preeti Cotton, 03/07/2018 orher day M.D. 325(65Fe) mg Tablets Tramadol HCL take 1 tablet @ 120tabs [facility], 11/12/2013 50mg hs M.D. Tablets Vitamin D3 High 1 po qd [facility], 09/01/2013 Potency M.D. 1000Unit Capsules Aspirin 81 Low Dose 1 by mouth every Unknown day 81mg Chewtabs Furosemide take 1 tablet [facility] mouth once daily M.D. Tablets in the morning Losartan Potassium 1 by [...] MG Jabier Cuadra M.D., 02/03/2013 Injection FACC, FASCT Technetium TC 99M Jabier Cuadra M.D., 02/03/2013 Tetrofosmin, Per Unit Dose Up [facility] To 40 Millicuries Injection Immunizations CPT Code Status Date Vaccine Reaction Lot # [id number] Given 05/08/2018 Influenza Virus Vaccine, [id number] Quadrivalent, Split, Preservative Free [id number] Given 05/26/2017 Influenza Virus Vaccine, Quadrivalent, Split, Preservative Free 13434 Given 06/20/2016 Influ Virus Vaccine, no immediate reaction [id number] Quadrivalent, Split Virus, noted ... [id number] [address] Given 05/10/2015 Influenza Virus Vaccine, [id number] Quadrivalent, Split, Preservative Free 53561 Given 09/28/2014 Pneumococcal Conjugate [id number] Vaccine 13 Valent For Intramuscular Use 69499 Given 05/06/2014 Influenza Virus Vaccine, [id number] Quadrivalent, Split, Preservative Free 71934 Given 05/01/2013 Flu Vaccine Split Virus [id number] Preservative Free For Indiv 3Yr Older [id number] Given 04/17/2012 Fluzone Vaccine [id number] 74391 Given 09/26/2011 Pneumonia Vaccine [id number] 66520 Given 09/14/2011 Pneumonia Vaccine [id number] Given 05/01/2011 Fluzone Vaccine [id number] Given 05/01/2010 Influenza Virus 3Yrs & Over 01302 Given 04/23/2008 Influenza Virus 3Yrs & [id number] Over 38780 Given 06/06/2007 Flu Vac (History By [id number] Patient> Vital Signs Date Vital Result Comment 04/18/2019 10:16am Height 62 inches 5'2" Weight 158.00 lb Heart Rate 74 /min BP Systolic 144 mmHg BP Diastolic 68 mmHg O2 % BldC Oximetry 96 % BMI (Body Mass Index) 28.9 kg/m2 04/02/2019 9:48am Height 62 inches 5'2" Weight 157.00 lb Heart Rate 71 /min BP Systolic Sitting 146 mmHg BP Diastolic Sitting 75 mmHg O2 % BldC Oximetry 96 % BMI (Body Mass Index) 28.7 kg/m2 Results Test Date Facility Test Result H/L Range Note CBC Auto 03/04/2019 [facility] White Blood 5.5 10^3/uL Normal 3.5-10.[address] [place] [address] [phone] Red Blood Count 5.09 10^6/uL High 3.70-4.87 [...] Blood Cells % 0.0 Laboratory test 03/04/2019 [facility] B-Type 716 pg/mL High <= [address] [place] [address] Peptide BNP [phone] Troponin-I (TnI) 0.03 ng/mL <0.04 1 Comp Metabolic 03/04/2019 [facility] Sodium 140 mmol/L Normal 135-[address] [place] [address] [phone] Potassium 4.4 mmol/L Normal 3.5-5.0 Chloride 102 [...] Egfr Non- 39.9 >60 Egfr 48.3 >60 2 Laboratory test 03/04/2019 [facility] Magnesium 2.3 mg/dL Normal 1.9-2.[address] [place] [address] [phone] Urinalysis 03/04/2019 [facility] Urine Color Yellow Profile [address] [place] [address] [phone] Urine Appearance Clear Urine Specific [place] 1.012 Normal 1.010-1.030 Urine pH 7.0 Normal [...] Present Abnormal Absent Urine Culture And 03/04/2019 [facility] Urine SEE RESULT [address] [place] [address] [phone] Basic Metabolic 01/27/2019 [facility] Sodium 141 mmol/L Normal 135-[address] [place] [address] [phone] Potassium 4.5 mmol/L Normal 3.5-5.0 Chloride 103 mmol/L Normal 101-111 Co2 Carbon Dioxide 27 mmol/L Normal 22-32 Anion Gap 11 mmol/L Normal 2-11 Glucose 86 mg/dL Normal 70-100 Blood Urea Nitrogen 33 mg/dL High 6-24 Creatinine 1.30 mg/dL High 0.51-0.95 BUN/Creatinine Ratio 25.4 High 8-20 Calcium 9.7 mg/dL Normal 8.6-10.3 Egfr Non- 38.8 >60 Egfr 47.0 >60 4 Iron & Iron Binding 01/27/2019 [facility] Iron 36 g/dL Low 50-[address] [place] [address] [phone] Unsaturated Iron Binding < 366 g/dL Total Iron Binding Capacity 381 g/dL Normal 250-450 Transferrin 272 mg/dL Normal 203-362 % Iron Saturation 9 % Low 15-55 Basic Metabolic 11/04/2018 [facility] Sodium 138 mmol/L Normal 135-[address] [place] [address] [phone] Potassium 4.9 mmol/L Normal 3.5-5.0 Chloride 102 mmol/L Normal 101-111 Co2 Carbon Dioxide 30 mmol/L Normal 22-32 Anion Gap 6 mmol/L Normal 2-11 Glucose 81 mg/dL Normal 70-100 Blood Urea Nitrogen 40 mg/dL High 6-24 Creatinine 1.52 mg/dL High 0.51-0.95 BUN/Creatinine Ratio 26.3 High 8-20 Calcium 9.6 mg/dL Normal 8.6-10.3 Egfr Non- 32.4 >60 Egfr 39.2 >60 5 1 Troponin-I testing on Plasma Separator Tubes (PST) has a known false positive rate of 0.20-0.40%. All positive troponins reflex immediately to secondary confirmatory testing. Using the [employer] DxI 800 Access Immunoassay systems, the 99th percentile upper reference limit was demonstrated to be < 0.03 ng/mL. 2 Because ethnic data is not always readily [...] 15-29 5 Kidney failure <15 (or dialysis) 3 SEE RESULT BELOW Name: JINAMERICA Apolonia : [address]: Citlalli Pepe MD Acct: [id number] Unit: [id number] AGE: 88 Location: ED Re03/04/19 SEX: F Status: DEP ER SPEC: [id number] [place]: 03/04/19 [facility] DR: Citlalli Pepe MD REQ: [id number] RECD: 03/04/19 STATUS: CARLIN URIBE DR: Preeti Cooper MD _ SOURCE: URINE SPDESC: ORDERED: Urine Culture/S Procedure Result Reported Site Urine Culture Final 03/05/19- 1202 ML No growth of clinically significant organisms * ML - Main Lab . END OF REPORT DEPARTMENT OF PATHOLOGY, [address] [place] [address] Kenton Boyer M.D. Director [facility] # [id number] 4 Because ethnic data is not always readily [...] 15-29 5 Kidney failure <15 (or dialysis) 5 Because ethnic data is not always [...] dialysis) Procedures Date Code Description Status 09/10/2012 283459507 Bone Mineral Density Test Completed 01/31/2012 [id number] Diabetic Foot Exam Completed 06/13/2010 [id number] Mammogram Completed 06/07/2009 [id number] Mammogram Completed 06/05/2008 [id number] Mammogram Completed 12/10/2007 [id number] Colonoscopy Completed Medical Devices Description No Information Available Encounters Type Date Location Provider Dx Diagnosis Office Visit 04/02/2019 [facility] Internal Leny Vang, R04.2 Hemoptysis 9:50a Bobbi Stanton M.D. R06.00 Dyspnea, unspecified Office Visit 01/03/2019 [facility] Preeti I42.9 Cardiomyopathy, 1:00p Bobbi Cooper M.D. unspecified Ginaob N18.3 Chronic kidney disease, stage 3 (moderate) G25.81 Restless legs syndrome D50.9 Iron deficiency anemia, unspecified Office Visit 11/12/2018 1:30p [facility] Jabier Sylvain I34.9 Nonrheumatic mitral Of Jason Cuadra M.D., valve disorder, FACC, FASNC unspecified I34.0 Nonrheumatic mitral (valve) insufficiency Assessments Date Code Description Provider 04/18/2019 I50.810 Right heart failure, unspecified Preeti Cooper M.D. 04/18/2019 D69.6 Thrombocytopenia, unspecified Preeti Cooper M.D. 04/02/2019 R04.2 Hemoptysis Leny Vang M.D. 04/02/2019 R06.00 Dyspnea, unspecified Leny Vang M.D. 01/03/2019 I42.9 Cardiomyopathy, unspecified Preeti Cooper M.D. 01/03/2019 N18.3 Chronic kidney disease, stage 3 Preeti Cooper M.D. (moderate) 01/03/2019 G25.81 Restless legs syndrome Preeti Cooper M.D. 01/03/2019 D50.9 Iron deficiency anemia, awildaified Preeti Cooper M.D. 11/12/2018 I34.9 Nonrheumatic mitral valve disorder, Jabier Cuadra M.D. , FACC, unspecified FASCT 11/12/2018 I34.0 Nonrheumatic mitral (valve) Jabier Cuadra M.D., [facility], insufficiency [facility] Plan of Treatment Future Appointment(s):05/19/2019 10:00 am - Preeti Cooper M.D. at [facility] Internal Medicine - [facility]04/18/2019 - Preeti Cooper M.D.I50.810 Right heart failure, unspecifiedComments:Continue monitoring weightContinue the same medicationFollow up:end .6 Thrombocytopenia, unspecified Functional Status Description No Information Available Mental Status Description No Information Available Referrals Description No Information Available
[2019-06-05 10:36] LABS: ABS Eosinophils 0.1 10^3/ul (0-0.6); ABS Lymphocytes 0.3 10^3/ul (1.0-4.8); ABS Monocytes 0.5 10^3/ul (0-0.8); ABS Neutrophils 3.1 10^3/ul (1.5-7.7); Eosinophil % 1.7 %; Hematocrit 42 % (35-47); Hemoglobin 13.6 g/dL (12.0-16.0); Lymphocyte % 8.2 %; Mean Corpuscular HGB Conc 32 g/dL (31-36); Mean Corpuscular Hemoglobin 28 pg (27-31); Mean Corpuscular Volume 86 fL (80-97); Mean Platelet Volume 7.6 fL (7.4-10.4); Nucleated Red Blood Cells % 0.1; Platelet Count 111 10^3/uL (150-450); Red Blood Count 4.92 10^6 /uL (3.70-4.87); Red Cell Distribution Width 21 % (10-15); White Blood Count 4.1 10^3/uL (3.5-10.8)
[2019-06-05] MEDS: Dexamethasone IV* 4 MG/ML 1 ML (4 MG) IV SLOW PU ONE ×2 (10:41→10:43)
[2019-06-05] MEDS: Ondansetron INJ* 2 MG/ML VIAL IV ONE (10:41)
[2019-06-05] MEDS: Furosemide IV* 10 MG/ML VIAL (40 MG) IV ONE (10:46)
[2019-06-05 10:51] LABS: Activated Partial Thrombo Time 34.8 seconds (26.0-38.0); INR 1.2 (0.82-1.09)
[2019-06-05 10:54] LABS: Albumin 3.7 g/dL (3.2-5.2); Albumin/Globulin Ratio 1.3 (1-3); BUN/Creatinine Ratio 33.3 (8-20); Calcium 9.5 mg/dL (8.6-10.3); EGFR African American 42.7 (>60); EGFR Non-African American 35.3 (>60); Globulin 2.9 g/dL (2-4); Potassium 4.5 mmol/L (3.5-5.0); Total Bilirubin 1.1 mg/dL (0.2-1.0); Total Protein 6.6 g/dL (6.4-8.9)
[2019-06-05 10:55] LABS: Troponin I 0.02 ng/mL (<0.04)
[2019-06-05] MEDS: Lidocaine 2% VISCOUS* 15 ML UDC PO ONE (11:27)
[2019-06-05] MEDS ORDERED: Iodixanol* (CONTRAST) 320 MG/ML 100 ML SDV IV ONE (11:28)
--- NOTE | 2019-06-05 12:04 | ED ---
HPI Cardiac - HPI Summary HPI Summary: Patient is an 89-year-old female with a history of mitral valve replacement, aortic dissection with repair and CHF. Vegetable Picker is Dr. Waldron in [facility]. Patient states this morning she developed acute onset SOB and diffuse swelling of the face, abdomen and extremities. She states this happened in the past, however this is her study has been. Symptoms are worse with sitting upright and better with lying flat. She states she was able to see her embedded software developer 2 weeks ago and they increased her dose of Lasix from 40 mg to 80 mg per day. She endorses a 2-3 pound weight gain in the past week. Denies history of DVT or PE. Patient is not on blood thinners. She felt this morning she was too "heavy" to even stand up and had to call her daughter. She came directly to the ED. Symptoms are still present, however have improved. Surgical history includes thoracic aortic dissection with repair and subsequently a leakage one month following. She states her symptoms at the time of her leakage was also SOB. She denies cough, fevers, sweats, Chills, nausea, vomiting, abdominal pain. She does state she is more "firm" in her belly than usual. She denies any vascular or liver problems. High creatinine at times (per daughter) but no official dx of renal disease. - History of Current Complaint Chief Complaint: EDShortnessOfBreath Stated Complaint: SHORT OF BREATH Time Seen by Provider: 06/05/19 09:59 Hx Obtained From: Patient, Family/Director Of Training Onset/Duration: Started Hours Ago Timing: Constant Initial Severity: Severe Current Severity: Severe Pain Intensity: 0 Pain Scale Used: 0-10 Numeric Aggravating Factor(s): Other: - sitting upright Alleviating Factor(s): Other: - lying flat Associated Signs and Symptoms: Positive: Shortness of Breath, Other: - voice changes, SOB. Negative: Chest Pain, Vision Changes, Recent Stress, Headaches, Numbness, Chills, Lightheadedness, Diaphoresis, Hoarseness, Sinus Discomfrot - Allergy/Home Medications Allergies/Adverse Reactions: Allergies Allergy/AdvReac Type Severity Reaction Status Date / Time Sulfa (Sulfonamide Allergy See Comment Verified 06/05/19 10:04 Antibiotics) PMH/Surg Hx/FS Hx/Imm Hx Previously Healthy: No Endocrine/Hematology History: Denies: Hx Diabetes, Hx Systemic Lupus Erythematosus Cardiovascular History: Reports: Hx Aneurysm - aortic , Hx Atrial Fibrillation, Hx Congestive Heart Failure, Hx Hypertension, Hx Pacemaker/ICD, Other Cardiovascular Problems/Disorders - mitral valve repair Denies: Hx Auto Implanted Cardiovert Defib History: Denies: Hx Renal Disease Musculoskeletal History: Denies: Hx Rheumatoid Arthritis, Hx Osteoporosis - Surgical History Surgery Procedure, Year, and Place: hysterectomy. left aortic valve repair. pacemaker/defibrilator. [address] valve repair [address] Dr[address] Esteves - Immunization History Hx Pertussis Vaccination: No Immunizations Up to Date: Yes Infectious Disease History: No Infectious Disease History: Denies: Traveled Outside the [place] in Last 30 Days - Family History Known Family History: Positive: Hypertension - Social History Occupation: Retired Lives: Alone Alcohol Use: None Hx Substance Use: No Substance Use Type: Reports: None Hx Tobacco Use: No Smoking Status (MU): Never Smoked Tobacco Have You Smoked in the Last Year: No Review of Systems Negative: Fever, Chills, Fatigue, Skin Diaphoresis Positive: Other - voice changes Negative: Palpitations, Chest Pain Positive: Shortness Of Breath. Negative: Cough Negative: Abdominal Pain, Vomiting, Diarrhea, Nausea, Other - feels distended Genitourinary: Negative Positive: no symptoms reported, see HPI Negative: Arthralgia, Myalgia Neurological: Negative All Other Systems Reviewed And Are Negative: Yes Physical Exam Triage Information Reviewed: Yes Vital Signs On Initial Exam: Initial Vitals Pulse Resp Pulse Ox 73 15 93 06/05/19 10:00 06/05/19 10:00 06/05/19 10:00 Vital Signs Reviewed: Yes Appearance: Positive: Ill-Appearing Skin: Positive: Other - cyanotic Head/Face: Positive: Normal Head/Face Inspection Eyes: Positive: EOMI, Conjunctiva Clear Neck: Positive: Supple, No Lymphadenopathy Respiratory/Lung Sounds: Positive: Decreased Breath Sounds, Rales, Other - resp distress - but able to speak full sentences. Negative: Stridor, Tracheal Deviation, Wheezes Cardiovascular: Positive: Leg Edema Left - +3, Leg Edema Right - +3 Musculoskeletal: Positive: Normal, Strength/ROM Intact Neurological: Positive: Speech Normal Psychiatric: Positive: Affect/Mood Appropriate AVPU Assessment: Alert Procedures - Sedation Patient Received Moderate/Deep Sedation with Procedure: No Diagnostics - Vital Signs Vital Signs Temp Pulse Resp BP Pulse Ox 06/05/19 11:31 80 15 112/77 06/05/19 11:00 17 144/57 06/05/19 10:30 77 19 144/74 96 06/05/19 10:13 77 17 96 06/05/19 10:02 98.0 F 76 22 145/78 95 06/05/19 10:00 73 15 93 - Laboratory Lab Results: Lab Results 06/05/19 06/05/19 06/05/19 Range/Units 10:23 10:28 10:28 WBC 4.1 (3.5-10.8) 10^3/uL RBC 4.92 H (3.70-4.87) 10^6 /uL Hgb 13.6 (12.0-16.0) g/dL Hct 42 (35-47) % MCV 86 (80-97) fL MCH 28 (27-31) pg MCHC 32 (31-36) g/dL RDW 21 H (10-15) % Plt Count 111 L (150-450) 10^3/uL MPV 7.6 (7.4-10.4) fL Neut % (Auto) 76.4 % Lymph % (Auto) 8.2 % Pinal % (Auto) 12.5 % Eos % (Auto) 1.7 % Baso % (Auto) 1.2 % Absolute Neuts (auto) 3.1 (1.5-7.7) 10^3/ul Absolute Lymphs (auto) 0.3 L (1.0-4.8) 10^3/ul Absolute Monos (auto) 0.5 (0-0.8) 10^3/ul Absolute Eos (auto) 0.1 (0-0.6) 10^3/ul Absolute Basos (auto) 0.0 (0-0.2) 10^3/ul Absolute Nucleated RBC 0.0 10^3/ul Nucleated RBC % 0.1 INR (Anticoag Therapy) 1.20 H (0.82-1.09) APTT 34.8 (26.0-38.0) seconds Sodium (135-145) mmol/L Potassium (3.5-5.0) mmol/L Chloride (101-111) mmol/L Carbon Dioxide (22-32) mmol/L Anion Gap (2-11) mmol/L BUN (6-24) mg/dL Creatinine (0.51-0.95) mg/dL Est GFR ( Amer) (>60) Est GFR (Non-Af Amer) (>60) BUN/Creatinine Ratio (8-20) Glucose (70-100) mg/dL Lactic Acid 1.1 (0.5-2.0) mmol/L Calcium (8.6-10.3) mg/dL Total Bilirubin (0.2-1.0) mg/dL AST (13-39) U/L ALT (7-52) U/L Alkaline Phosphatase (34-104) U/L Troponin I (<0.04) ng/mL B-Natriuretic Peptide (<=100) pg/mL Total Protein (6.4-8.9) g/dL Albumin (3.2-5.2) g/dL Globulin (2-4) g/dL Albumin/Globulin Ratio (1-3) 06/05/19 06/05/19 Range/Units 10:28 10:28 WBC (3.5-10.8) 10^3/uL RBC (3.70-4.87) 10^6 /uL Hgb (12.0-16.0) g/dL Hct (35-47) % MCV (80-97) fL MCH (27-31) pg MCHC (31-36) g/dL RDW (10-15) % Plt Count (150-450) 10^3/uL MPV (7.4-10.4) fL Neut % (Auto) % Lymph % (Auto) % Pinal % (Auto) % Eos % (Auto) % Baso % (Auto) % Absolute Neuts (auto) (1.5-7.7) 10^3/ul Absolute Lymphs (auto) (1.0-4.8) 10^3/ul Absolute Monos (auto) (0-0.8) 10^3/ul Absolute Eos (auto) (0-0.6) 10^3/ul Absolute Basos (auto) (0-0.2) 10^3/ul Absolute Nucleated RBC 10^3/ul Nucleated RBC % INR (Anticoag Therapy) (0.82-1.09) APTT (26.0-38.0) seconds Sodium 141 (135-145) mmol/L Potassium 4.5 (3.5-5.0) mmol/L Chloride 101 (101-111) mmol/L Carbon Dioxide 32 (22-32) mmol/L Anion Gap 8 (2-11) mmol/L BUN 47 H (6-24) mg/dL Creatinine 1.41 H (0.51-0.95) mg/dL Est GFR ( Amer) 42.7 (>60) Est GFR (Non-Af Amer) 35.3 (>60) BUN/Creatinine Ratio 33.3 H (8-20) Glucose 81 (70-100) mg/dL Lactic Acid (0.5-2.0) mmol/L Calcium 9.5 (8.6-10.3) mg/dL Total Bilirubin 1.10 H (0.2-1.0) mg/dL AST 28 (13-39) U/L ALT 16 (7-52) U/L Alkaline Phosphatase 83 (34-104) U/L Troponin I 0.02 (<0.04) ng/mL B-Natriuretic Peptide 674 H (<=100) pg/mL Total Protein 6.6 (6.4-8.9) g/dL Albumin 3.7 (3.2-5.2) g/dL Globulin 2.9 (2-4) g/dL Albumin/Globulin Ratio 1.3 (1-3) Result Diagrams: 06/05/19 10:28 06/05/19 10:28 Lab Statement: Any lab studies that have been ordered have been reviewed, and results considered in the medical decision making process. Disposition - Course Course Of Treatment: Arrival into the ED, the patient appears cyanotic to her fingers and lips. She is noted to be 70% on room air per EMS. She was placed on 4L nasal cannula prior to arrival and on arrival into the ED, this was titrated back down to room air and she continued to sat at 94%. Patient was lying supine and nearly flat on the bed after arrival and states this is how she feels most comfortable. She is having obvious respiratory distress with voice changes. On physical examination, uvula appears enlarged and she is edematous throughout including abdomen, breasts and upper and lower extremities. She also has edema surrounding her orbits and throughout her face. Lungs decreased sounds throughout with rales in the LL base. Abdomen firm with evidence of anasarca. Bedside US shows fluid around the lungs, kidney and throughout the abdomen. While visualizing the uvula, pt began to have gagging episodes and endorses nausea. 40mg lasix given with little effect. Given viscous lidocaine, 4mg zofran and 10mg decadron. CTA chest/abd/pelvis: IMPRESSION: 1. AGAIN NOTED IS AN AORTIC DISSECTION EXTENDING FROM THE ASCENDING THORACIC AORTA INTO THE ABDOMINAL AORTA. THE FALSE LUMEN IS THROMBOSED. AGAIN NOTED IS AN ENDOLEAK ALONG WITH A DESCENDING AORTIC STENT GRAFT, WELL CONTRAST WITHIN A PENETRATING ULCER OF THE AORTIC ARCH, THE PENETRATING ULCER ALONG THE ARCH HAS INCREASED IN SIZE COMPARED TO MARCH 04, 2019.. 2. BILATERAL PLEURAL EFFUSIONS. 3. RIGHT ATRIAL ENLARGEMENT. 4. THERE IS EXTENSIVE SUBCUTANEOUS EDEMA. 5. ASCITES. 6. FATTY INFILTRATION OF THE LIVER. 7. ATHEROSCLEROSIS. Discussed all results with patient and patient's family. Patient states she is willing to be transferred to [facility]. Called [facility] at 12:50pm. Dr. Beltran, cardiology accepted for admission at 2:10pm awaiting a bed assignment. Cardiac step-down unit. Continues on 2L NC sat at 94%. Cyanosis improved. VS: BP 115/18, respirations 16, heart rate 83. - Differential Dx - Cardiopulmonary Differential Diagnoses - Cardiopulmonary: Other - endovascular leak, anasarca, renal disease, hypoxia, hypoventilation - Diagnoses Provider Diagnoses: Shortness of breath, Edema - Physician Notifications Discussed Care Of Patient With: Obey Law Instructed by Provider To: Transfer Admit/Transition Orders Completed By ED Provider: Yes - Critical Care Time Critical Care Time: 30-74 min Discharge ED - Sign-Out/Discharge Documenting (check all that apply): Patient Departure - Discharge Plan Condition: Fair Disposition: TRANS HIGHER LVL OF CARE FAC Referrals: Preeti Cooper MD [Primary Care Provider] - - Billing Disposition and Condition Condition: FAIR Disposition: Trans Higher Lvl of Care Fac - Attestation Statements Provider Attestation: 89-year-old female accompanied a past medical history presented to the emergency department with a complaint of facial swelling shortness of breath. Patient does have accompanied history of heart failure and was recently increased by her primary physician to take her Lasix twice a day for obesity prescribed once a day. Patient states that she has had increased shortness of breath and also feels that her voice is changed somewhat. On exam patient has diffuse anasarca including her face posterior pharynx with uvular swelling however is tolerating her secretions in his absence of any stridor or difficulty breathing from an upper airway perspective. She does have bibasilar rales and rhonchi with diminished air entry throughout particularly in the lower lung hunt. Bedside ultrasound of her pulmonary exam shows some B lines in the anterior intercostal spaces but most notably for large bilateral effusions in both lower lung hunt. She also has free fluid in the abdomen which is consistent with a clinical picture of anasarca. She also has diffuse abdominal and chest wall edema. Patient has a very complete history of aortic disease with multiple repairs and leaks in the past. Patient is CT angiography to today showing new aortic leak. We discussed this with her cardiothoracic surgeon as well as her embedded software developer both of whom are at [facility]. They do agree that the patient will require emergent transfer to [facility] for further workup and management of the same. Patient was transported he will be stable at the time.
[2019-06-05 12:41] LABS: Urine Appearance Cloudy; Urine Bacteria 1+ (Absent); Urine Bilirubin Negative (Negative); Urine Blood Negative (Negative); Urine Color Yellow; Urine Glucose Negative (Negative); Urine Ketones Negative (Negative); Urine Nitrite Negative (Negative); Urine Protein Negative (Negative); Urine Red Blood Cell 1+(3-5/hpf) (Absent); Urine Specific Gravity 1.016 (1.010-1.030); Urine Squamous Epithelial Cell Present (Absent); Urine Urobilinogen Negative (Negative); Urine White Blood Cell Trace(0-5/hpf) (Absent)
[2019-06-05 16:00] VITALS: BP 127/72
--- NOTE | 2019-06-08 07:41 | ED ---
Imaging and Labs Follow Up Follow Up Type: Labs/Cultures Labs/Culture Result: Urine culture final grew proteus mirabilis 75-100,000 patient was transferred to [facility] Patient Communication/Plan: faxed over urine culture results to [facility] Provider Diagnoses: Shortness of breath, Edema
== END 2019-06-05 16:00 | disposition short-term general hospital (02) ==
LOC: ED 09:47
DX: R06.02 Shortness of breath (principal); R60.9 Edema, unspecified; J90 Pleural effusion, not elsewhere classified; K76.0 Fatty (change of) liver, not elsewhere classified; I70.0 Atherosclerosis of aorta; I48.91 Unspecified atrial fibrillation; I11.0 Hypertensive heart disease with heart failure; I50.9 Heart failure, unspecified; Z95.2 Presence of prosthetic heart valve; Z95.810 Presence of automatic (implantable) cardiac defibrillator; Z79.899 Other long term (current) drug therapy; Z88.2 Allergy status to sulfonamides
CPT/HCPCS: 36415; 71045; 71275; 74174; 80053; 81003; 81015; 82140; 83605; 83880; 84484; 85025; 85610; 85730; 87077; 87086; 87186; 93005; 96374; 96375; 96376; 99285; J1100; J1940; J2405